=== PATIENT | male | born 1995 | race Caucasian/White ===

== ENCOUNTER 2021-05-26 10:46 | Emergency (ER) | payer OTHER, SELFPAY ==
--- NOTE | 2021-05-26 11:03 | ED.WOUNDLAC ---
HPI - Wound/Laceration General Chief Complaint: Wound/Laceration Stated Complaint: Lip Laceration Time Seen by Provider: 05/26/21 11:02 Source: patient and RN notes reviewed Mode of arrival: ambulatory History of Present Illness HPI narrative: This is a 25-year-old male the presents to urgent care with a laceration to his inner and outer left lower lip status post trauma. According to patient he was working with a drill and the drill flipped up and hit him mouth he also has a chipped #9 tooth he will follow up with a dentist for this. The patient denies SOB, CP, palpitation, extremity numbness, lightheadedness, dizziness, constipation, diarrhea, chills, or fever. Related Data Allergies Allergy/AdvReac Type Severity Reaction Status Date / Time No Known Allergies Allergy Verified 05/26/21 11:02 Review of Systems Review of Systems: Narrative: A 14 organ system Review of Systems was performed and pertinent positives included in the HPI, otherwise remaining ROS is negative. All systems reviewed & are unremarkable except as noted in HPI and below PMFSH Past Medical History Medical History (Updated 05/26/21 @ 11:42 by JOSEPH GarciasP-C) Cellulitis Cerebral palsy Labral tear of long head of right biceps tendon Right rotator cuff tendonitis Subacromial impingement of right shoulder Wears glasses Surgical History Surgical History (Updated 04/20/21 @ 08:20 by Ashley Erazo RT(R)) History of hand surgery 2014-Thumb History of surgery Tendon transfer Family History Family History (Updated 04/20/21 @ 08:20 by Ashley Erazo RT(R)) Other Hypertension Social History Social History (Updated 04/20/21 @ 08:21 by Ashley Erazo RT(R)) Smoking packs per day: 0.5 Smoking cigarettes per day: 10.0 Years smoked: 6 Smoking pack-years: 3.00 Smoking status: Current every day smoker Tobacco type: e-cigarettes/vaping Smoking end date: 11/07/18 Alcohol intake: current Drinks per week: 10 Substance use: never Substance use type: does not use Gender identity (if verbalized by the patient): Male Exam Narrative: Exam Narrative: GENERAL: This is a well-nourished, well-developed patient, in no apparent distress. HEAD: normocephalic, atraumatic. Laceration to the left lower lip approx 2-3cm, #9 fractured tooth EYES: PERRL. Sclera clear/white. Vision is grossly intact. EARS: External ears normal, auditory canals clear and without drainage, TMs normal without perforation. Hearing grossly intact. NOSE: External nose normal with no obvious nasal discharge, nares without redness, no rhinorrhea. THROAT: Mucous membranes moist, posterior pharynx clear. NECK: Neck supple, non-tender without lymphadenopathy, masses or thyromegaly. CARDIOVASCULAR: Regular rate and rhythm without murmurs, gallops, or rubs. RESPIRATORY: Clear to auscultation. Breath sounds equal bilaterally. No wheezes, rales, or rhonchi. GASTROINTESTINAL: Abdomen soft, non-tender, nondistended. Bowel sounds are active. No hepato-splenomegaly, or palpable masses. No guarding. SKIN: warm, intact with no suspicious lesions or rash, good texture and turgor. NEURO: awake, alert, and oriented to person, place and time. There were no obvious focal neurologic abnormalities. Steady gait EXTREMITIES: Normal range of motion. No edema. No calf tenderness. Negative Homans sign bilaterally. BACK: Nontender without deformity or crepitance. No flank tenderness. Course Course Emergency Course: Patient received vicryl 5.0 left lower lip for sutures Vital Signs Vital signs: Vital Signs Temperature 97.7 F 05/26/21 11:12 Pulse Rate 73 05/26/21 11:12 Respiratory Rate 18 05/26/21 11:12 Blood Pressure 142/94 H 05/26/21 11:12 Pulse Oximetry 99 05/26/21 11:12 Temperature 97.7 F 05/26/21 11:12 Pulse Rate 73 05/26/21 11:12 Respiratory Rate 18 05/26/21 11:12 Blood Pressure 142/94 H 05/26/21 11:12 Pulse Oximetry 99
[2021-05-26 11:12] VITALS: BP 142/94; PULSE 73; RESP 18; TEMP 36.5; O2SAT 99
== END 2021-05-26 12:02 | disposition home or self-care (01) ==
PROVIDERS: Emergency Provider Nurse Practitioner; PCP Internal Medicine
DX: S01.511A Laceration without foreign body of lip, initial encounter (principal); W29.8XXA Contact with other powered hand tools and household machinery, initial encounter; F17.200 Nicotine dependence, unspecified, uncomplicated; G80.9 Cerebral palsy, unspecified
CPT/HCPCS: 12011; 99213; G0463

== ENCOUNTER 2021-05-27 10:02 | Emergency (ER) | payer OTHER, SELFPAY ==
[2021-05-27 10:14] VITALS: BP 128/79; PULSE 87; RESP 18; TEMP 36.8; O2SAT 100
--- NOTE | 2021-05-27 10:19 | ED.SKABFB ---
HPI - Skin/Abscess/Foreign Bdy General Chief complaint: Skin/Abscess/Foreign Body Stated complaint: stitches on mouth Time Seen by Provider: 05/27/21 10:14 Source: patient and RN notes reviewed Mode of arrival: ambulatory Limitations: no limitations History of Present Illness HPI narrative: 25-year-old male presents concern for laceration on the inner lower lip. Reports he was seen here yesterday and received stitches on the outer lip after he was working with a drill and the drill flipped up and hit him in the mouth. He reports the outer wound with stitches is doing fine, however reports the inner wound on the inner lower lip is painful and keeps opening up . He reports he has been taking pain medicine as directed. MD complaint: laceration Related Data Allergies Allergy/AdvReac Type Severity Reaction Status Date / Time No Known Allergies Allergy Verified 05/26/21 11:02 Review of Systems Review of Systems: Narrative: CONSTITUTIONAL: Denies malaise, chills, sweats, or fever. SKIN: Reports laceration on the inner lower lip NEUROLOGIC: Denies headache. All systems reviewed & are unremarkable except as noted in HPI and below PMFSH Past Medical History Medical History (Updated 05/27/21 @ 10:21 by Elysia Johnson NP) Cellulitis Cerebral palsy Labral tear of long head of right biceps tendon Right rotator cuff tendonitis Subacromial impingement of right shoulder Wears glasses Surgical History Surgical History (Updated 04/20/21 @ 08:20 by Ashley Erazo RT(R)) History of hand surgery 2014-Thumb History of surgery Tendon transfer Family History Family History (Updated 04/20/21 @ 08:20 by Ashley Erazo RT(R)) Other Hypertension Social History Social History (Updated 04/20/21 @ 08:21 by Ashley Erazo RT(R)) Smoking packs per day: 0.5 Smoking cigarettes per day: 10.0 Years smoked: 6 Smoking pack-years: 3.00 Smoking status: Current every day smoker Tobacco type: e-cigarettes/vaping Smoking end date: 11/07/18 Alcohol intake: current Drinks per week: 10 Substance use: never Substance use type: does not use Gender identity (if verbalized by the patient): Male Comments At time of signature, agree with nursing past medical, surgical, social and family history. There is no relevant family history pertinent to the presenting complaint Exam Narrative: Exam Narrative: GENERAL: Well-appearing, well-nourished, and in no acute distress. HEAD: Normocephalic, atraumatic. EYES: PERRLA, conjunctivae clear ENT: Nares clear. Mucous membranes moist. Oropharynx without erythema. Approximately 1 cm laceration into the subcutaneous tissue on the inner lower lip. Wound not approximated, tissue bed with yellow-brownish color and mild surrounding erythema. Lower lip generalized edema noted NECK: Supple. CHEST: No respiratory distress. Speaks in full sentences. HEART: Regular rate and rhythm. SKIN: Warm, dry NEURO: Alert and oriented x3. PSYCH: Normal mood and affect Course Course Emergency Course: Patient is aware of diagnosis, understands and agrees to treatment plan. Anticipatory guidance given. Patient agrees to follow-up as directed and is aware of reasons to seek care at the emergency department. Portions of this record may have been created with voice recognition software Vital Signs Vital signs: Vital Signs Temperature 98.2 F 05/27/21 10:14 Pulse Rate 87 05/27/21 10:14 Respiratory Rate 18 05/27/21 10:14 Blood Pressure 128/79 05/27/21 10:14 Pulse Oximetry 100 05/27/21 10:14 Temperature 98.2 F 05/27/21 10:14 Pulse Rate 87 05/27/21 10:14 Respiratory Rate 18 05/27/21 10:14 Blood Pressure 128/79 05/27/21 10:14 Pulse Oximetry 100 05/27/21 10:14 Reviewed. MDM - Skin/Abscess/Foreign Bdy MDM Narrative Medical decision making narrative: Exam findings show no acute concerns or changes; patient is non-toxic appearing and is in no d
[2021-05-27 10:21] VITALS: BP 128/72; PULSE 87; RESP 18; TEMP 36.8; O2SAT 99
== END 2021-05-27 10:27 | disposition home or self-care (01) ==
PROVIDERS: Emergency Provider Nurse Practitioner; PCP Internal Medicine
DX: S01.511A Laceration without foreign body of lip, initial encounter (principal); W29.8XXA Contact with other powered hand tools and household machinery, initial encounter; F17.200 Nicotine dependence, unspecified, uncomplicated
CPT/HCPCS: 99213; G0463